=== PATIENT | male | born 1950 | race Caucasian/White ===

== ENCOUNTER 2016-10-06 11:14 | Emergency (ER) | payer MEDICARE ==
--- NOTE | 2016-10-06 11:38 | ER Document Report ---
ED General - General Stated Complaint: CHEST PAIN Mode of Arrival: Ambulatory Information source: Patient, Outside Facility Records Notes: 65-year-old male history of one DC one stent presents with complaints of chest pain. Patient notes the pain has been ongoing for past week, associated with worsening pressure overnight and shortness of breath for the past 2-3 days. He should now having left arm numbness states this feels similar to his previous DC - HPI Onset: Last week Onset/Duration: Intermittent Quality of pain: Pressure Severity: Mild Pain Level: 1 Associated symptoms: Chest pain, Shortness of breath Exacerbated by: Denies Relieved by: Denies Similar symptoms previously: Yes Recently seen / treated by doctor: Yes - Related Data Allergies/Adverse Reactions: No Known Allergies Allergy (Verified 10/06/16 11:36) Home Medications: Current Home Medications Alprazolam 2 mg PO BID 10/06/16 [History] Aspirin [Aspirin 325 mg Tablet] 1 tab PO DAILY 10/06/16 [History] Atorvastatin Calcium 40 mg PO DAILY 10/06/16 [History] Colesevelam HCl [Welchol 625 mg Tablet] 3 tab PO BID 10/06/16 [History] Metoprolol Succinate 50 mg PO DAILY 10/06/16 [History] Past Medical History - Social History Smoking Status: Current Every Day Smoker Cigarette use (# per day): Yes Chew tobacco use (# tins/day): No Smoking Education Provided: No Frequency of alcohol use: Occasional Family History: Reviewed & Not Pertinent Review of Systems - Review of Systems Notes: REVIEW OF SYSTEMS: CONSTITUTIONAL : Denies fever, chills, or sweats. Denies recent illness. EENT: Denies eye, ear, throat, or mouth pain or symptoms. Denies nasal or sinus congestion or discharge. Denies throat, tongue, or mouth swelling or difficulty swallowing. CARDIOVASCULAR: Admits chest pain RESPIRATORY: Admits shortness of breath GASTROINTESTINAL: Denies abdominal pain or distention. Denies nausea, vomiting , or diarrhea. Denies blood in vomitus, stools, or per rectum. Denies black, tarry stools. Denies constipation. GENITOURINARY: Denies difficulty urinating, painful urination, burning, frequency, blood in urine, or discharge. MUSCULOSKELETAL: Denies back or neck pain or stiffness. Denies joint pain or swelling. SKIN: Denies rash, lesions or sores. HEMATOLOGIC : Denies easy bruising or bleeding. LYMPHATIC: Denies swollen, enlarged glands. NEUROLOGICAL: Denies confusion or altered mental status. Denies passing out or loss of consciousness. Denies dizziness or lightheadedness. Denies headache. Denies weakness or paralysis or loss of use of either side. Denies problems with gait or speech. Denies sensory loss, numbness, or tingling. Denies seizures. PSYCHIATRIC: Denies anxiety or stress. Denies depression, suicidal ideation, or homicidal ideation. ALL OTHER SYSTEMS REVIEWED AND NEGATIVE. Dictation was performed using [employer] voice recognition software PHYSICAL EXAMINATION: GENERAL: Well-appearing, well-nourished and in no acute distress. HEAD: Atraumatic, normocephalic. EYES: Pupils equal round and reactive to light, extraocular movements intact, sclera anicteric, conjunctiva are normal. ENT: Nares patent, oropharynx clear without exudates. Moist mucous membranes. NECK: Normal range of motion, supple without lymphadenopathy LUNGS: Breath sounds clear to auscultation bilaterally and equal. No wheezes rales or rhonchi. HEART: Regular rate and rhythm without murmurs ABDOMEN: Soft, nontender, nondistended abdomen. No guarding, no rebound. No masses appreciated. Musculoskeletal: Normal range of motion, no pitting or edema. No cyanosis. NEUROLOGICAL: Cranial nerves grossly intact. Normal speech, normal gait. Normal sensory, motor exams PSYCH: Normal mood, normal affect. SKIN: Warm, Dry, normal turgor, no rashes or lesions noted. Physical Exam - Vital signs Vitals: Temp Pulse Resp BP Pulse Ox 98.7 F 69 18 99/61 L 95 10/06/16 11:25 10/06/16 11:25 10/06/16 11:25 10/06/16 11:25 10/06/16 11:25 Course - Re-evaluation Re-evalutation: 10/06/16 11:46 I immediately contacted Lindsey Horner regarding possible STEMI, their physician answering the phone does not believe it is a STEMI, I did fax over a copy of the EKG Laboratories pending at this time 10/06/16 12:17 Dr. Luevano evaluated the EKG there was faxed to her, she showed her to the materials planning manager who agrees that there are ischemic changes without an DC at this time. They requested nitro drip heparin drip aspirin. Patient has already taken a full dose aspirin and has Nitropaste on, this has been removed. Patient will be transferred to their facility ED SHOBHA - Vital Signs Vital signs: Temp Pulse Resp BP Pulse Ox 98.7 F 69 15 113/81 100 10/06/16 11:25 10/06/16 11:25 10/06/16 12:00 10/06/16 11:56 10/06/16 12:00 - Laboratory Result Diagrams: 10/06/16 11:35 10/06/16 11:35 Laboratory results interpreted by me: 10/06/16 10/06/16 11:35 11:35 RBC 4.25 L MCV 100 H MCH 34.2 H Plt Count 112 L Glucose 154 H - EKG Interpretation by Me EKG shows normal: Sinus rhythm, [place], Intervals When compared to previous EKG there are: Previous EKG unavailable - Significant depressions noted in leads 1 aVL V3 V4 V5 V6 mild elevation noted in lead 3 - Consults new aureliano stemi line Time consulted: 11:30 Reason for consultation: 10/06/16 11:34 possible DC, requesting ekg NSTEMI 2000, stent right proximal Jun [address] elevation III, no depressions Critical Care Note - Critical Care Note Total time excluding time spent on procedures (mins): 45 Comments: 45 minutes of critical care time spent in direct contact evaluating and reevaluating the patient, treating symptoms, reviewing labs and studies and speaking with family and consultants excluding any procedures Discharge - Discharge Clinical Impression: Acute electrocardiogram changes, Unstable angina, NSTEMI (non-ST elevated myocardial infarction) Chest pain Qualifiers: Chest pain type: unspecified Qualified Code(s): R07.9 - Chest pain, unspecified Condition: Stable Disposition: [facility]
[2016-10-06] MEDS ORDERED: ASPIRIN 81 MG TABLET, CHEWABLE PO ONE (11:42)
[2016-10-06] MEDS ORDERED: NITROGLYCERIN 5 MG (0.2 MG/HR) PATCH.TD24 TD ONE (11:44)
[2016-10-06 11:52] LABS: ABSOLUTE BASOPHILS # (AUTO) 0.1 10^3/uL (0.0-0.2); ABSOLUTE EOSINOPHILS # (AUTO) 0.1 10^3/uL (0.0-0.6); ABSOLUTE LYMPHOCYTES (AUTO) 1.4 10^3/uL (0.5-4.7); ABSOLUTE MONOCYTES (AUTO) 0.6 10^3/uL (0.1-1.4); ABSOLUTE NEUT (AUTO) 6.6 10^3/uL (1.7-8.2); HEMATOCRIT 42.4 % (37.9-51.0); HEMOGLOBIN 14.5 g/dL (13.5-17.0); HGB HCT DIFFERENCE 1.1; MEAN CORPUSCULAR HEMOGLOBIN 34.2 pg (27.0-33.4); MEAN CORPUSCULAR HGB CONC 34.2 g/dL (32.0-36.0); MEAN CORPUSCULAR VOLUME 100 fl (80-97); MONOCYTES % (AUTO) 6.4 % (3-13); PROTHROMBIN TIME 13.3 SEC (11.4-15.4); RED BLOOD COUNT 4.25 10^6/uL (4.35-5.55); RED CELL DISTRIBUTION WIDTH 13.1 % (11.5-14.0); SEGMENTED NEUTROPHILS % (AUTO) 75.6 % (42-78); WHITE BLOOD COUNT 8.7 10^3/uL (4.0-10.5)
[2016-10-06 12:04] LABS: ALANINE AMINOTRANSFERASE 50 U/L (21-72); ALBUMIN 4.1 g/dL (3.5-5.0); ALKALINE PHOSPHATASE 67 U/L (38-126); ANION GAP 14 (5-19); ASPARTATE AMINO TRANSFERASE 24 U/L (17-59); BILIRUBIN,TOTAL 0.7 mg/dL (0.2-1.3); BLOOD UREA NITROGEN 9 mg/dL (7-20); CALCIUM 9.4 mg/dL (8.4-10.2); CARBON DIOXIDE 24 mmol/L (22-30); CHLORIDE 106 mmol/L (98-107); CREATINE KINASE 170 U/L (55-170); CREATININE RESULT 0.84 mg/dL (0.52-1.25); GLUCOSE 154 mg/dL (75-110); SODIUM 143.9 mmol/L (137-145); TOTAL PROTEIN 7.2 g/dL (6.3-8.2)
[2016-10-06] MEDS ORDERED: HEPARIN SODIUM,PORCINE/D5W 250 ML IV PRN (12:07)
[2016-10-06] MEDS ORDERED: HEPARIN SOD (PORCINE) 1,000 UNIT/ML 10 ML VIAL IV ONE (12:07)
[2016-10-06] MEDS ORDERED: NITROGLYCERIN/D5W 250 ML IV PRN (12:07)
[2016-10-06] MEDS ORDERED: HEPARIN SOD (PORCINE) 1,000 UNIT/ML 10 ML VIAL IV PRN (12:07)
[2016-10-06 12:15] LABS: CREATINE KINASE MB 5.19 ng/mL (<4.55)
[2016-10-06 12:19] LABS: TROPONIN I 1.78 ng/mL
[2016-10-06 13:29] VITALS: BP 104/72
--- NOTE | 2016-10-06 19:51 | EKG REPORT ---
SEVERITY:- ABNORMAL ECG - SINUS RHYTHM REPOL ABNRM SUGGESTS ISCHEMIA, DIFFUSE LEADS : Confirmed by: Raj Carter MD 06-Oct-2016 19:51:13
--- NOTE | 2016-10-06 19:53 | EKG REPORT ---
SEVERITY:- ABNORMAL ECG - SINUS RHYTHM REPOL ABNRM SUGGESTS ISCHEMIA, DIFFUSE LEADS CLINICAL CORRELATIO N NEEDED. SERIAL EKGS NEEDED. : Confirmed by: Raj Carter MD 06-Oct-2016 19:52:43
== END 2016-10-06 13:05 | disposition short-term general hospital (02) ==
LOC: ER 11:14
DX: I20.0 Unstable angina (principal); I21.4 Non-ST elevation (NSTEMI) myocardial infarction; R07.9 Chest pain, unspecified; R06.02 Shortness of breath; Z79.899 Other long term (current) drug therapy; F17.210 Nicotine dependence, cigarettes, uncomplicated
CPT/HCPCS: 93005; 99291; 96375; 96365; 36415; 82553; 82550; 85025; 85610; 85730; 80053; 84484; 71010; 93010; J1644 ×2; J3490 ×2

== ENCOUNTER 2019-06-02 00:26 | Inpatient (IN) | payer MEDICARE, OTHER ==
[2019-06-02] MEDS ORDERED: NITROGLYCERIN/D5W 50 MG/250 ML RTUINJ IV ONE (00:28)
[2019-06-02] MEDS ORDERED: NITROGLYCERIN/D5W 50 MG/250 ML RTUINJ IV PRN (00:32)
--- NOTE | 2019-06-02 00:39 | ER Document Report ---
ED General - General Chief Complaint: Shortness Of Breath Stated Complaint: DIFFICULTY BREATHING Time Seen by Provider: 06/02/19 00:31 Primary Care Provider: JAZMIN SCOTT MD [Primary Care Provider] - Follow up as needed TRAVEL OUTSIDE OF THE [place] IN LAST 30 DAYS: No - HPI Notes: Patient is a 68-year-old male who presents to the emergency department for evaluation of shortness of breath. Is been going on for the last 3 days, progressively worse. He states he has had a cough, mucus, occasionally bloody. He denies any fevers. He is having no chest pain associated with this. He was placed on BiPAP because he was found to be hypoxic at the scene with an elevated respiratory rate. Taking his medications as prescribed. - Related Data Allergies/Adverse Reactions: No Known Allergies Allergy (Verified 10/06/16 11:36) Home Medications: Home medications reviewed, please see chart Past Medical History - General Information source: Patient - Social History Smoking Status: Current Every Day Smoker Chew tobacco use (# tins/day): No Frequency of alcohol use: Social Drug Abuse: None Family History: Reviewed & Not Pertinent Patient has suicidal ideation: No Patient has homicidal ideation: No - Past Medical History Cardiac Medical History: Reports: Hx Coronary Artery Disease, Hx Heart Attack, Hx Hypercholesterolemia, Hx Hypertension Renal/ Medical History: Denies: Hx Peritoneal Dialysis Past Surgical History: Reports: Hx Cardiac Catheterization - stent x1 Review of Systems - Review of Systems Constitutional: No symptoms reported EENT: No symptoms reported Cardiovascular: See HPI Respiratory: See HPI Gastrointestinal: No symptoms reported Genitourinary: No symptoms reported Musculoskeletal: No symptoms reported Skin: No symptoms reported Neurological/Psychological: No symptoms reported Physical Exam - Vital signs Vitals: Resp Pulse Ox 44 H 87 L 06/02/19 00:28 06/02/19 00:28 - Notes Notes: 68-year-old male appears stated age, moderate amount of distress. He is on BiPAP, respiratory rate between 38 and 40. Head is normocephalic and atraumatic, pupils are equal round, reactive to light. Oral mucosa is moist. Heart is tachycardic with normal S1-S2. Lungs show rales throughout lung posada bilaterally. Abdomen is obese, nontender, normoactive bowel sounds. Extremities show +1 pitting edema bilaterally without posterior calf tenderness. Patient is awake and alert, neurological exam is nonfocal. Course - Re-evaluation Re-evalutation: 06/02/19 00:38 Presents emergency department for evaluation via EMS. He was found to be hypoxic on arrival. He arrived on CPAP, this was changed over to BiPAP. He is markedly hypertensive. Given his rales and hypertension, as well as reports of some process, I do strongly suspect acute congestive heart failure in this patient. He was placed on a nitroglycerin drip, BiPAP continued. Laboratory investigations and EKG obtained, we will continue to monitor. 06/02/19 01:56 Patient responded well to nitroglycerin and BiPAP. He is feeling significantly improved. Chest x-ray read by radiology showing left upper lobe infiltrate. He is given IV Levaquin. Blood cultures had already been obtained. Despite the fact that this patient meets sepsis criteria, I do not think it appropriate to give IV fluids. I do suspect that he had some flash pulmonary edema. He has a pro-that is elevated with no history of congestive heart failure. Given this combination of events, will perform a CT angiogram of the chest to rule out pulmonary embolus. Patient has improved remarkably. We will continue to monitor. 06/02/19 03:41 Angiogram of the chest failed to reveal any pulmonary embolus. Patient's read showed further bilateral upper lobe pneumonia. At this point, clinically I am unsure as to whether or not this is in fact pneumonia. I do not feel inclined to give IV fluids in this patient who appeared to be clinically in heart fa ilure/pulmonary edema on arrival. He is given IV Levaquin to cover for pneumonia. He is weaned off BiPAP successfully, is now requiring nasal cannula oxygen for appropriate SPO2. I spoke with Dr. Zhong, he will be the patient for further care. - Vital Signs Vital signs: Temp Pulse Resp BP Pulse Ox 22 H 124/79 95 06/02/19 03:36 06/02/19 03:36 06/02/19 03:36 - Laboratory Result Diagrams: 06/02/19 00:30 06/02/19 00:30 Laboratory results interpreted by me: 06/02/19 06/02/19 06/02/19 00:30 00:30 00:30 WBC 14.8 H MCV 100 H MCH 33.6 H Plt Count 100 L Absolute Neuts (auto) 10.9 H Chloride 108 H Glucose 183 H NT-Pro-B Natriuret Pep 3000 H Total Protein 8.3 H Urine Protein Ur Leukocyte Esterase Urine Ascorbic Acid 06/02/19 01:30 WBC MCV MCH Plt Count Absolute Neuts (auto) Chloride Glucose NT-Pro-B Natriuret Pep Total Protein Urine Protein >=500 H Ur Leukocyte Esterase TRACE H Urine Ascorbic Acid 40 H - Diagnostic Test Radiology reviewed: Image reviewed, Reports reviewed Radiology results interpreted by me: 06/02/19 01:57 Chest X-Ray 06/02/19 00:00 IMPRESSION: Left upper lobe pneumonia. - EKG Interpretation by Me Additional EKG results interpreted by me: 06/02/19 00:44 Sinus tachycardia with a rate of 116 bpm. Right axis deviation. ST depression anterolateral leads. This is actually improved in regards to ischemic changes from prior study performed October 06, 2016 Critical Care Note - Critical Care Note Total time excluding time spent on procedures (mins): 40 Discharge - Discharge Clinical Impression: Acute respiratory failure with hypoxia Pneumonia Qualifiers: Pneumonia type: due to unspecified organism Laterality: bilateral Congestive heart failure Qualifiers: Heart failure type: unspecified Heart failure chronicity: acute Qualified Code(s): I50.9 - Heart failure, unspecified Condition: Stable Disposition: ADMITTED INPATIENT Admitting Provider: Trevin (Hospitalist) Unit Admitted: IMCU Referrals: JAZMIN SCOTT MD [Primary Care Provider] - Follow up as needed
[2019-06-02 00:50] LABS: ABSOLUTE BASOPHILS # (AUTO) 0.1 10^3/uL (0.0-0.2); ABSOLUTE EOSINOPHILS # (AUTO) 0.3 10^3/uL (0.0-0.6); ABSOLUTE LYMPHOCYTES (AUTO) 2.4 10^3/uL (0.5-4.7); ABSOLUTE MONOCYTES (AUTO) 1.1 10^3/uL (0.1-1.4); ABSOLUTE NEUT (AUTO) 10.9 10^3/uL (1.7-8.2); BASOPHILS % (AUTO) 0.8 % (0-2); HEMATOCRIT 47.3 % (37.9-51.0); HEMOGLOBIN 15.9 g/dL (13.5-17.0); LYMPHOCYTES % (AUTO) 16.1 % (13-45); MEAN CORPUSCULAR HEMOGLOBIN 33.6 pg (27.0-33.4); MEAN CORPUSCULAR HGB CONC 33.5 g/dL (32.0-36.0); MEAN CORPUSCULAR VOLUME 100 fl (80-97); MONOCYTES % (AUTO) 7.4 % (3-13); PLATELET COUNT 100 10^3/uL (150-450); RED BLOOD COUNT 4.72 10^6/uL (4.35-5.55); RED CELL DISTRIBUTION WIDTH 13.2 % (11.5-14.0); SEGMENTED NEUTROPHILS % (AUTO) 73.7 % (42-78); TOTAL CELLS COUNTED % (AUTO) 100 %; WHITE BLOOD COUNT 14.8 10^3/uL (4.0-10.5)
[2019-06-02 01:07] LABS: INTERNATIONAL RATION (INR) 1.02; PROTHROMBIN TIME 13.4 SEC (11.4-15.4)
[2019-06-02 01:08] LABS: PARTIAL THROMBOPLASTIN TIME 28.7 SEC (23.5-35.8)
[2019-06-02 01:13] LABS: ALBUMIN 4.6 g/dL (3.5-5.0); ALKALINE PHOSPHATASE 76 U/L (38-126); ANION GAP 14 (5-19); ASPARTATE AMINO TRANSFERASE 20 U/L (17-59); BILIRUBIN,DIRECT 0.4 mg/dL (0.0-0.4); BILIRUBIN,TOTAL 1.2 mg/dL (0.2-1.3); BLOOD UREA NITROGEN 14 mg/dL (7-20); CALCIUM 9.8 mg/dL (8.4-10.2); CARBON DIOXIDE 22 mmol/L (22-30); CHLORIDE 108 mmol/L (98-107); CREATINE KINASE 116 U/L (55-170); GLUCOSE 183 mg/dL (75-110); POTASSIUM 4.4 mmol/L (3.6-5.0); TOTAL PROTEIN 8.3 g/dL (6.3-8.2)
--- NOTE | 2019-06-02 01:21 | RADIOLOGY REPORT (SQ) ---
CLINICAL HISTORY: DIFF BREATHING, SOB COMPARISON: None. TECHNIQUE: XR CHEST 1 VIEW 06/02/2019 12:00 AM CDT FINDINGS: The heart is enlarged. Sternotomy was performed. There is left upper lobe airspace disease. There is no pleural effusion. There is no pneumothorax. There are no acute osseous findings. IMPRESSION: Left upper lobe pneumonia.
[2019-06-02 01:25] LABS: NT PRO BNP 3000 pg/mL (<125)
[2019-06-02 01:29] LABS: TROPONIN I < 0.012 ng/mL
[2019-06-02] MEDS ORDERED: LEVOFLOXACIN 750 MG/D5W RTU 750 MG/150 ML RTUPB IV ONE (01:32)
[2019-06-02 02:35] LABS: APPEARANCE,URINE CLEAR; BILIRUBIN,URINE NEGATIVE (NEGATIVE); COLOR,URINE YELLOW; GLUCOSE, URINE NEGATIVE (NEGATIVE); KETONES,URINE NEGATIVE (NEGATIVE); LEUKOCYTE ESTERASE,URINE TRACE (NEGATIVE); NITRITE,URINE NEGATIVE (NEGATIVE); PROTEIN,URINE >=500 mg/dL (NEGATIVE); UROBILINOGEN,URINE NEGATIVE mg/dL (<2.0)
[2019-06-02 02:43] LABS: URINE SPECIFIC GRAVITY 1.027
--- NOTE | 2019-06-02 03:03 | RADIOLOGY REPORT (SQ) ---
CLINICAL HISTORY: dyspnea, hemoptysis, CREAT 0.81 COMPARISON: None. TECHNIQUE: CT CHEST ANGIOGRAPHY WITHOUT THEN WITH IV CONTRAST on 06/02/2019 1:58 AM CDT. MIPS reconstructions were generated. This exam was performed according to our departmental dose-optimization program, which includes automated exposure control, adjustment of the mA and/or kV according to patient size and/or use of iterative reconstruction technique. MIP images were generated. FINDINGS: Thoracic aorta is normal in course and caliber without aneurysm or dissection. Pulmonary arteries are adequately opacified without acute or chronic filling defects. The heart is moderately enlarged. Sternotomy was performed. There is no pericardial effusion. Intrathoracic lymph nodes are not enlarged. There are trace pleural effusions. Central airways are patent. There is bibasilar atelectasis. There are patchy bilateral upper lobe opacities. There is mild intralobular septal thickening. There are no acute abnormalities within the limited images of the upper abdomen. There are no acute osseous findings. No suspicious bony lesions. IMPRESSION: Bilateral upper lobe pneumonia with pleural effusions. Cardiomegaly with no aortic dissection or aneurysm. No pulmonary embolus.
[2019-06-02] MEDS ORDERED: ACETAMINOPHEN 325 MG TABLET PO PRN (03:42)
[2019-06-02] MEDS ORDERED: IPRATROPIUM/ALBUTEROL 0.5-2.5 MG/3 ML AMPUL NEB PRN (03:42)
[2019-06-02] MEDS ORDERED: DEXTROSE 50%-WATER 25 GM/50 ML DISP.SYRIN IV PRN ×2 (03:47)
[2019-06-02] MEDS ORDERED: DEXTROSE 40% GEL 15 GM TUBE PO PRN ×2 (03:47)
[2019-06-02] MEDS ORDERED: GLUCAGON,HUMAN RECOMB 1 MG INJ IM PRN (03:47)
[2019-06-02 03:57] LABS: ABSOLUTE RETICS # 0.063 10^6/uL (0.028-0.122); RETICULOCYTE COUNT (AUTO) 1.34 % (0.66-2.85)
--- NOTE | 2019-06-02 06:37 | PDOC H&P ---
History of Present Illness Admission Date/PCP: 06/02/19 03:59 JAZMIN SCOTT MD Patient complains of: Shortness of breath History of Present Illness: ADRIANA GALLEGO is a 68 year old male with a past medical history of tobacco, coronary artery disease status post coronary artery bypass graft 2016, hypertension and anxiety. He presents with 48 hours of intermittently productive cough increasing shortness of breath and over the last 12 hours blood-tinged sputum prompting evaluation emergency room where he is found to have bilateral pneumonia, and hypertensive urgency. He is started on empiric antibiotics, supplemental oxygen and referred to the hospitalist for admission. Past Medical History Cardiac Medical History: Reports: Coronary Artery Disease, Myocardial Infarction, Hyperlipidema, Hypertension Pulmonary Medical History: Reports: Bronchitis Endocrine Medical History: Reports: Diabetes Mellitus Type 2 Psychiatric Medical History: Reports: Tobacco Dependency Past Surgical History Past Surgical History: Reports: Cardiac Catheterization - stent x1 Social History Information Source: Patient, [facility] Records Lives with: Family Smoking Status: Current Every Day Smoker Electronic Cigarette use?: No - Advance Directive Resuscitation Status: Full Code Family History Family History: Hypertension Parental Family History Reviewed: Yes Children Family History Reviewed: Yes Sibling(s) Family History Reviewed.: Yes Medication/Allergy Home Medications: Aspirin [Aspirin 325 mg Tablet] 1 tab PO DAILY 10/06/16 Atorvastatin Calcium 40 mg PO QHS 10/06/16 Alprazolam 1 mg PO DAILYP PRN 06/02/19 Bupropion HCl [Bupropion Xl] 150 mg PO BID 06/02/19 Chlorpromazine HCl [Thorazine 25 Mg Tablet] 1 - 2 tab PO DAILYP PRN 06/02/19 Colesevelam HCl [Welchol 625 mg Tablet] 3 tab PO BID 06/02/19 Ibuprofen [Ibu] 800 mg PO TIDP PRN 06/02/19 Lancets 06/02/19 Metformin HCl [Metformin HCl ER] 500 mg PO DAILY 06/02/19 Metoprolol Tartrate [Lopressor 25 mg Tablet] 25 mg PO Q12 06/02/19 Mirtazapine 30 mg PO QHS 06/02/19 Nitroglycerin [Nitrostat 0.4 mg (1/150 Gr) Tabs 25/Bottle] 1 tab SL Q5MP PRN 1 Triamcinolone Acetonide 60 ml TP BID 10/29/19 Allergies/Adverse Reactions: No Known Allergies Allergy (Verified 10/06/16 11:36) Review of Systems Constitutional: ABSENT: chills, fever(s), headache(s), weight gain, weight loss Eyes: ABSENT: visual disturbances Ears: ABSENT: hearing changes Cardiovascular: ABSENT: chest pain, dyspnea on exertion, edema, orthropnea, palpitations Respiratory: ABSENT: cough, hemoptysis Gastrointestinal: ABSENT: abdominal pain, constipation, diarrhea, hematemesis, hematochezia, nausea, vomiting Genitourinary: ABSENT: dysuria, hematuria Musculoskeletal: ABSENT: joint swelling Integumentary: ABSENT: rash, wounds Neurological: ABSENT: abnormal gait, abnormal speech, confusion, dizziness, focal weakness, syncope Psychiatric: ABSENT: anxiety, depression, homidical ideation, suicidal ideation Endocrine: ABSENT: cold intolerance, heat intolerance, polydipsia, polyuria Hematologic/Lymphatic: ABSENT: easy bleeding, easy bruising Physical Exam Vital Signs: Temp Pulse Resp BP Pulse Ox 98.2 F 29 H 114/76 94 06/02/19 03:57 06/02/19 05:16 06/02/19 05:16 06/02/19 05:16 Intake & Output 05/31/19 06/01/19 06/02/19 11:59 11:59 11:59 Intake Total 181 Balance 181 Weight 108 kg General appearance: PRESENT: cooperative, mild distress, well-developed, well- nourished Head exam: PRESENT: atraumatic, normocephalic Eye exam: PRESENT: conjunctiva pink, EOMI, PERRLA. ABSENT: scleral icterus Ear exam: PRESENT: normal external ear exam Mouth exam: PRESENT: moist, tongue midline Neck exam: ABSENT: carotid bruit, JVD, lymphadenopathy, thyromegaly Respiratory exam: PRESENT: accessory muscle use, crackles, rales, rhonchi, symmetrical, tachypnea. ABSENT: clear to auscultation charbel Cardiovascular exam: PRESENT: RRR, tachycardia. ABSENT: diastolic murmur, rubs, systolic murmur Pulses: PRESENT: normal dorsalis pedis pul Vascular exam: PRESENT: normal capillary refill GI/Abdominal exam: PRESENT: normal bowel sounds, soft. ABSENT: distended, guarding, mass, organolmegaly, rebound, tenderness Rectal exam: PRESENT: deferred Extremities exam: PRESENT: full ROM. ABSENT: calf tenderness, clubbing, pedal edema Neurological exam: PRESENT: alert, awake, oriented to person, oriented to place, oriented to time, oriented to situation, CN II-XII grossly intact. ABSENT: motor sensory deficit Psychiatric exam: PRESENT: appropriate affect, normal mood. ABSENT: homicidal ideation, suicidal ideation Skin exam: PRESENT: dry, intact, warm. ABSENT: cyanosis, rash Results Laboratory Results: 06/02/19 00:30 06/02/19 00:30 06/02/19 06/02/19 06/02/19 00:30 00:30 00:30 WBC 14.8 H RBC 4.72 Hgb 15.9 Hct 47.3 MCV 100 H MCH 33.6 H MCHC 33.5 RDW 13.2 Plt Count 100 L Seg Neutrophils % 73.7 Retic Count (auto) 1.34 Sodium 144.3 Potassium 4.4 Chloride 108 H Carbon Dioxide 22 Anion Gap 14 BUN 14 Creatinine 0.81 Est GFR ( Amer) > 60 Glucose 183 H Calcium 9.8 Total Bilirubin 1.2 AST 20 Alkaline Phosphatase 76 Total Protein 8.3 H Albumin 4.6 Urine Color Urine Appearance Urine pH Ur Specific [place] Urine Protein Urine Glucose (UA) Urine Ketones Urine Blood Urine Nitrite Ur Leukocyte Esterase Urine WBC (Auto) Urine RBC (Auto) 06/02/19 01:30 WBC RBC Hgb Hct MCV MCH MCHC RDW Plt Count Seg Neutrophils % Retic Count (auto) Sodium Potassium Chloride Carbon Dioxide Anion Gap BUN Creatinine Est GFR ( Amer) Glucose Calcium Total Bilirubin AST Alkaline Phosphatase Total Protein Albumin Urine Color YELLOW Urine Appearance CLEAR Urine pH 6.0 Ur Specific [place] 1.027 Urine Protein >=500 H Urine Glucose (UA) NEGATIVE Urine Ketones NEGATIVE Urine Blood NEGATIVE Urine Nitrite NEGATIVE Ur Leukocyte Esterase TRACE H Urine WBC (Auto) 10 Urine RBC (Auto) 3 06/02/19 06/02/19 00:30 00:30 Creatine Kinase 116 CK-MB (CK-2) 1.50 Troponin I < 0.012 NT-Pro-B Natriuret Pep 3000 H Impressions: Chest X-Ray 06/02/19 00:00 IMPRESSION: Left upper lobe pneumonia. Chest/Abdomen CTA 06/02/19 01:58 IMPRESSION: Bilateral upper lobe pneumonia with pleural effusions. Cardiomegaly with no aortic dissection or aneurysm. No pulmonary embolus. Assessment and Plan - Diagnosis (1) Pneumonia Qualifiers: Pneumonia type: due to unspecified organism Laterality: bilateral Is this a current diagnosis for this admission?: Yes Plan: Pneumonia care set deployed, follow-up CBC and blood culture (2) Hypertensive urgency Is this a current diagnosis for this admission?: Yes Plan: Results with improved respiratory status, supplemental oxygen, (3) Acute respiratory failure with hypoxia Is this a current diagnosis for this admission?: Yes Plan: Multifactorial secondary to #1 and early diastolic heart failure, optimize volume, blood pressure and heart rate, follow-up chemistry (4) Congestive heart failure Qualifiers: Heart failure type: unspecified Heart failure chronicity: acute Qualified Code(s): I50.9 - Heart failure, unspecified Is this a current diagnosis for this admission?: Yes Plan: Secondary to hypertensive urgency. Optimize volume and pressure, diuresis PRN - Time Time Spent with patient: 25-34 minutes - Inpatient Certification Medical Necessity: Need Close Monitoring Due to Risk of Patient Decompensation
[2019-06-02] MEDS: FLUTICASONE NASAL SPRAY 50 MCG/SPRY 120 SPRAY/16 GM NASL SCH ×2 (07:34→17:03)
[2019-06-02] MEDS: HEPARIN SOD (PORCINE) 5,000 UNIT/ML 1 ML VIAL SUBCUT SCH ×3 (07:34→21:39)
--- NOTE | 2019-06-02 07:39 | EKG REPORT ---
SEVERITY:- BORDERLINE ECG - SINUS TACHYCARDIA PROBABLE LEFT ATRIAL ABNORMALITY RIGHT AXIS DEVIATION MINIMAL ST DEPRESSION, LATERAL LEADS : Confirmed by: Raj Carter MD 02-Jun-2019 07:38:42
[2019-06-02] MEDS: INSULIN LISPRO 100 UNIT/ML 3 ML VIAL SUBCUT SCH ×3 (08:09→17:01)
[2019-06-02] MEDS: NICOTINE 7 MG/24 HR PATCH.TD24 TD SCH (08:12)
[2019-06-02] MEDS: IPRATROPIUM/ALBUTEROL 0.5-2.5 MG/3 ML AMPUL NEB SCH ×2 (08:34→16:17)
[2019-06-02] MEDS: CEFTRIAXONE 1 GM/D5W RTU 1 GM/50 ML RTUPB IV SCH (09:56)
[2019-06-02] MEDS ORDERED: AZITHROMYCIN 500 MG in DEXTROSE 5%-WATER 250 ML IV SCH (10:00)
[2019-06-02 10:01] LABS: IRON(TIBC) 93.4 ug/dL (49-181)
[2019-06-02] MEDS ORDERED: (PENDING PHARMACY ID) (Alprazolam [Alprazolam] 1 MG) PO PRN (10:23)
--- NOTE | 2019-06-02 10:24 | PDOC PROGRESS REPORT ---
Subjective Progress Note for:: 06/02/19 Reason For Visit: CHF, DM, HTN URGENCY, PNUEMONIA 06/02/2019 Was admitted after midnight so was seen just briefly this morning for the above problems. States he is feeling better this morning, less shortness of breath Physical Exam Vital Signs: Temp Pulse Resp BP Pulse Ox 98.1 F 77 18 120/67 97 06/02/19 08:30 06/02/19 08:34 06/02/19 08:34 06/02/19 08:30 06/02/19 08:34 Intake & Output 06/01/19 06/02/19 06/03/19 06:59 06:59 06:59 Intake Total 381 Output Total 200 Balance 181 Weight 97.9 kg General appearance: PRESENT: no acute distress, other - BiPAP in place teens inspiratory 16, rate of 8, expiratory 8, O2 sat 100% Respiratory exam: PRESENT: clear to auscultation charbel. ABSENT: rales, rhonchi, wheezes Cardiovascular exam: PRESENT: RRR. ABSENT: diastolic murmur, rubs, systolic murmur Neurological exam: PRESENT: alert, awake, oriented to person, oriented to place, oriented to time, oriented to situation, CN II-XII grossly intact. ABSENT: motor sensory deficit Psychiatric exam: PRESENT: appropriate affect, normal mood. ABSENT: homicidal ideation, suicidal ideation Results Laboratory Results: 06/02/19 00:30 06/02/19 00:30 06/02/19 06/02/19 06/02/19 00:30 00:30 00:30 WBC 14.8 H RBC 4.72 Hgb 15.9 Hct 47.3 MCV 100 H MCH 33.6 H MCHC 33.5 RDW 13.2 Plt Count 100 L Seg Neutrophils % 73.7 Retic Count (auto) 1.34 Sodium 144.3 Potassium 4.4 Chloride 108 H Carbon Dioxide 22 Anion Gap 14 BUN 14 Creatinine 0.81 Est GFR ( Amer) > 60 Glucose 183 H Calcium 9.8 Iron TIBC % Saturation Ferritin Total Bilirubin 1.2 AST 20 Alkaline Phosphatase 76 Total Protein 8.3 H Albumin 4.6 Vitamin B12 Folate Urine Color Urine Appearance Urine pH Ur Specific [place] Urine Protein Urine Glucose (UA) Urine Ketones Urine Blood Urine Nitrite Ur Leukocyte Esterase Urine WBC (Auto) Urine RBC (Auto) 06/02/19 06/02/19 00:30 01:30 WBC RBC Hgb Hct MCV MCH MCHC RDW Plt Count Seg Neutrophils % Retic Count (auto) Sodium Potassium Chloride Carbon Dioxide Anion Gap BUN Creatinine Est GFR ( Amer) Glucose Calcium Iron 93.4 TIBC 382 % Saturation 24 Ferritin 297.00 Total Bilirubin AST Alkaline Phosphatase Total Protein Albumin Vitamin B12 341.0 Folate 10.20 Urine Color YELLOW Urine Appearance CLEAR Urine pH 6.0 Ur Specific [place] 1.027 Urine Protein >=500 H Urine Glucose (UA) NEGATIVE Urine Ketones NEGATIVE Urine Blood NEGATIVE Urine Nitrite NEGATIVE Ur Leukocyte Esterase TRACE H Urine WBC (Auto) 10 Urine RBC (Auto) 3 06/02/19 06/02/19 00:30 00:30 Creatine Kinase 116 CK-MB (CK-2) 1.50 Troponin I < 0.012 NT-Pro-B Natriuret Pep 3000 H Impressions: Chest X-Ray 06/02/19 00:00 IMPRESSION: Left upper lobe pneumonia. Chest/Abdomen CTA 06/02/19 01:58 IMPRESSION: Bilateral upper lobe pneumonia with pleural effusions. Cardiomegaly with no aortic dissection or aneurysm. No pulmonary embolus. Assessment and Plan - Diagnosis (1) Acute respiratory failure with hypoxia Is this a current diagnosis for this admission?: Yes (2) Congestive heart failure Qualifiers: Heart failure type: unspecified Heart failure chronicity: acute Qualified Code(s): I50.9 - Heart failure, unspecified Is this a current diagnosis for this admission?: Yes (3) Hypertensive urgency Is this a current diagnosis for this admission?: Yes (4) Pneumonia Qualifiers: Pneumonia type: due to unspecified organism Laterality: bilateral Is this a current diagnosis for this admission?: Yes - Plan Summary Summary: 06/02/2019 Discussed with patient that usually this would take 3 to 5 days of IV antibiotics Patient is feeling better this morning since admission Out of signs are actually better blood pressure when he came in was 195/119 is now 122/59. ABCs when he came in was 14.8 BNP was 3000 CTA of the chest showed pneumonia bilaterally in both upper lobes Will reconcile home medications - Time Time Spent with patient: 25-34 minutes
[2019-06-02] MEDS ORDERED: (PENDING PHARMACY ID) (Metformin Hcl [Metformin Hcl Er] 500 MG) PO SCH (10:30)
[2019-06-02] MEDS: METOPROLOL TARTRATE 25 MG TABLET PO SCH ×2 (11:44→21:38)
[2019-06-02] MEDS: BUPROPION HCL 100 MG TABLET PO SCH ×2 (13:45→21:38)
[2019-06-02] MEDS: METFORMIN HCL 500 MG TABLET PO SCH (17:02)
[2019-06-02] MEDS: COLESEVELAM HCL 625 MG TABLET PO SCH (17:09)
[2019-06-02] MEDS ORDERED: TRIAMCINOLONE ACETONIDE TOP SCH (18:00)
[2019-06-02] MEDS: ALPRAZOLAM 0.5 MG TABLET PO PRN (21:38)
[2019-06-02] MEDS: MIRTAZAPINE 15 MG TABLET PO SCH (21:39)
[2019-06-02] MEDS: ATORVASTATIN CALCIUM 40 MG TABLET PO SCH (21:39)
[2019-06-02] MEDS ORDERED: (PENDING PHARMACY ID) (Mirtazapine [Mirtazapine] 30 MG) PO SCH (22:00)
[2019-06-02] MEDS ORDERED: (PENDING PHARMACY ID) (Bupropion Hcl [Bupropion Xl] 150 MG) PO SCH (22:00)
[2019-06-03] MEDS: IPRATROPIUM/ALBUTEROL 0.5-2.5 MG/3 ML AMPUL NEB SCH ×3 (00:26→15:38)
[2019-06-03] MEDS: BUPROPION HCL 100 MG TABLET PO SCH ×3 (06:00→21:58)
[2019-06-03] MEDS: FLUTICASONE NASAL SPRAY 50 MCG/SPRY 120 SPRAY/16 GM NASL SCH ×2 (06:00→17:39)
[2019-06-03] MEDS: HEPARIN SOD (PORCINE) 5,000 UNIT/ML 1 ML VIAL SUBCUT SCH ×3 (06:03→21:59)
[2019-06-03 06:24] LABS: ABSOLUTE LYMPHOCYTES (AUTO) 0.9 10^3/uL (0.5-4.7); ABSOLUTE MONOCYTES (AUTO) 0.8 10^3/uL (0.1-1.4); ABSOLUTE NEUT (AUTO) 6.5 10^3/uL (1.7-8.2); BASOPHILS % (AUTO) 0.3 % (0-2); EOSINOPHILS % (AUTO) 0.6 % (0-6); HEMOGLOBIN 13.9 g/dL (13.5-17.0); LYMPHOCYTES % (AUTO) 11.2 % (13-45); MEAN CORPUSCULAR HEMOGLOBIN 34.1 pg (27.0-33.4); MEAN CORPUSCULAR HGB CONC 34.6 g/dL (32.0-36.0); MEAN CORPUSCULAR VOLUME 99 fl (80-97); MONOCYTES % (AUTO) 10.1 % (3-13); RED BLOOD COUNT 4.06 10^6/uL (4.35-5.55); RED CELL DISTRIBUTION WIDTH 13.4 % (11.5-14.0); SEGMENTED NEUTROPHILS % (AUTO) 77.8 % (42-78); TOTAL CELLS COUNTED % (AUTO) 100 %; WHITE BLOOD COUNT 8.3 10^3/uL (4.0-10.5)
[2019-06-03 06:42] LABS: ANION GAP 12 (5-19); BLOOD UREA NITROGEN 12 mg/dL (7-20); CALCIUM 9.1 mg/dL (8.4-10.2); CARBON DIOXIDE 24 mmol/L (22-30); CHLORIDE 103 mmol/L (98-107); GLUCOSE 127 mg/dL (75-110); POTASSIUM 3.7 mmol/L (3.6-5.0)
[2019-06-03 07:22] LABS: PLATELET COUNT 69 10^3/uL (150-450)
[2019-06-03] MEDS: NICOTINE 7 MG/24 HR PATCH.TD24 TD SCH (08:29)
[2019-06-03] MEDS: INSULIN LISPRO 100 UNIT/ML 3 ML VIAL SUBCUT SCH ×3 (08:29→17:35)
[2019-06-03] MEDS: METFORMIN HCL 500 MG TABLET PO SCH ×2 (08:29→17:37)
[2019-06-03] MEDS: COLESEVELAM HCL 625 MG TABLET PO SCH ×2 (09:55→17:38)
[2019-06-03] MEDS: CEFTRIAXONE 1 GM/D5W RTU 1 GM/50 ML RTUPB IV SCH (09:55)
[2019-06-03] MEDS: ASPIRIN 325 MG TABLET PO SCH (09:55)
[2019-06-03] MEDS: METOPROLOL TARTRATE 25 MG TABLET PO SCH ×2 (09:55→21:58)
[2019-06-03] MEDS: AZITHROMYCIN 250 MG TABLET PO SCH (09:55)
--- NOTE | 2019-06-03 11:42 | PDOC PROGRESS REPORT ---
Subjective Progress Note for:: 06/03/19 Reason For Visit: CHF, DM, HTN URGENCY, PNUEMONIA 06/03/19 Patient was admitted to the hospital primarily for shortness of breath, hypoxia secondary to pneumonia, bilateral upper lobes. he does not use oxygen at home. Also hypertensive urgency Physical Exam Vital Signs: Temp Pulse Resp BP Pulse Ox 98.6 F 93 17 143/73 H 97 06/03/19 04:04 06/03/19 08:37 06/03/19 08:37 06/03/19 04:04 06/03/19 08:37 Intake & Output 06/02/19 06/03/19 06/04/19 06:59 06:59 06:59 Intake Total 381 1700 Output Total 200 2150 Balance 181 -450 Weight 97.9 kg 97.4 kg General appearance: PRESENT: mild distress, other - O2 sat drops down to 86% on room air when he is up and ambulatory Respiratory exam: PRESENT: rhonchi, other - Lower lobe area Cardiovascular exam: PRESENT: RRR. ABSENT: diastolic murmur, rubs, systolic murmur Neurological exam: PRESENT: alert, awake, oriented to person, oriented to place, oriented to time, oriented to situation, CN II-XII grossly intact. ABSENT: mo tor sensory deficit Psychiatric exam: PRESENT: appropriate affect, normal mood. ABSENT: homicidal ideation, suicidal ideation Results Laboratory Results: 06/03/19 05:30 06/03/19 05:30 06/03/19 06/03/19 05:30 05:30 WBC 8.3 RBC 4.06 L Hgb 13.9 Hct 40.0 MCV 99 H MCH 34.1 H MCHC 34.6 RDW 13.4 Plt Count 69 L Seg Neutrophils % 77.8 Sodium 138.7 Potassium 3.7 Chloride 103 Carbon Dioxide 24 Anion Gap 12 BUN 12 Creatinine 0.65 Est GFR ( Amer) > 60 Glucose 127 H Calcium 9.1 06/02/19 06/02/19 00:30 00:30 Creatine Kinase 116 CK-MB (CK-2) 1.50 Troponin I < 0.012 NT-Pro-B Natriuret Pep 3000 H Impressions: Chest X-Ray 06/02/19 00:00 IMPRESSION: Left upper lobe pneumonia. Chest/Abdomen CTA 06/02/19 01:58 IMPRESSION: Bilateral upper lobe pneumonia with pleural effusions. Cardiomegaly with no aortic dissection or aneurysm. No pulmonary embolus. Assessment and Plan - Diagnosis (1) Acute respiratory failure with hypoxia Is this a current diagnosis for this admission?: Yes (2) Congestive heart failure Qualifiers: Heart failure type: unspecified Heart failure chronicity: acute Qualified Code(s): I50.9 - Heart failure, unspecified Is this a current diagnosis for this admission?: Yes (3) Hypertensive urgency Is this a current diagnosis for this admission?: Yes (4) Pneumonia Qualifiers: Pneumonia type: due to unspecified organism Laterality: bilateral Is this a current diagnosis for this admission?: Yes - Plan Summary Summary: 06/02/2019 Discussed with patient that usually this would take 3 to 5 days of IV antibiotics Patient is feeling better this morning since admission, vital signs are actually better blood pressure when he came in was 195/119 is now 122/59. WBCs when he came in was 14.8 BNP was 3000 CTA of the chest showed pneumonia bilaterally in both upper lobes Will reconcile home medications 06/03/2019 She is actually comfortable when he is in bed and able to talk in full sentences. Afebrile temperature 98.6 pulse in the 80s or 90s. Blood pressure stable actually quite well controlled now Count is come down on admission 14.8 today is 8.3. Her lites are stable Continue pulmonary toiletry continue IV antibiotics. To 3 more days and then possibly discharge on p.o. antibiotics - Time Time Spent with patient: 15-24 minutes
[2019-06-03] MEDS: ALPRAZOLAM 0.5 MG TABLET PO PRN (21:58)
[2019-06-03] MEDS: MIRTAZAPINE 15 MG TABLET PO SCH (21:58)
[2019-06-03] MEDS: ATORVASTATIN CALCIUM 40 MG TABLET PO SCH (21:59)
[2019-06-04] MEDS: IPRATROPIUM/ALBUTEROL 0.5-2.5 MG/3 ML AMPUL NEB SCH ×3 (00:38→16:46)
[2019-06-04] MEDS: HEPARIN SOD (PORCINE) 5,000 UNIT/ML 1 ML VIAL SUBCUT SCH ×3 (05:31→22:33)
[2019-06-04] MEDS: FLUTICASONE NASAL SPRAY 50 MCG/SPRY 120 SPRAY/16 GM NASL SCH ×2 (05:32→18:39)
[2019-06-04] MEDS: BUPROPION HCL 100 MG TABLET PO SCH ×3 (05:34→22:37)
[2019-06-04] MEDS: INSULIN LISPRO 100 UNIT/ML 3 ML VIAL SUBCUT SCH ×3 (07:58→16:29)
[2019-06-04] MEDS: NICOTINE 7 MG/24 HR PATCH.TD24 TD SCH (08:52)
[2019-06-04] MEDS: METFORMIN HCL 500 MG TABLET PO SCH ×2 (08:53→16:28)
--- NOTE | 2019-06-04 09:18 | PDOC PROGRESS REPORT ---
Subjective Progress Note for:: 06/04/19 Reason For Visit: CHF, DM, HTN URGENCY, PNUEMONIA 06/04/2019 38-year-old male admitted on 06/02/2019 for shortness of breath. Gnosis pneumonia #2 hypertension urgency #3 hypoxia #4 CHF Physical Exam Vital Signs: Temp Pulse Resp BP Pulse Ox 98.3 F 104 H 16 147/83 H 96 06/04/19 07:29 06/04/19 08:22 06/04/19 08:22 06/04/19 07:29 06/04/19 08:22 Intake & Output 06/03/19 06/04/19 06/05/19 06:59 06:59 06:59 Intake Total 1700 1230 Output Total 2150 800 Balance -450 430 Weight 97.4 kg 95.8 kg General appearance: PRESENT: no acute distress, other - Sitting up in the chair eating breakfast, oxygen in place Respiratory exam: PRESENT: rhonchi - Slight rhonchi left lower lobe Cardiovascular exam: PRESENT: RRR. ABSENT: diastolic murmur, rubs, systolic murmur Neurological exam: PRESENT: alert, awake, oriented to person, oriented to place, oriented to time, oriented to situation, CN II-XII grossly intact. ABSENT: motor sensory deficit Psychiatric exam: PRESENT: appropriate affect, normal mood. ABSENT: homicidal ideation, suicidal ideation Results Laboratory Results: 06/03/19 05:30 06/03/19 05:30 06/02/19 06/02/19 00:30 00:30 Creatine Kinase 116 CK-MB (CK-2) 1.50 Troponin I < 0.012 NT-Pro-B Natriuret Pep 3000 H Impressions: Chest X-Ray 06/02/19 00:00 IMPRESSION: Left upper lobe pneumonia. Chest/Abdomen CTA 06/02/19 01:58 IMPRESSION: Bilateral upper lobe pneumonia with pleural effusions. Cardiomegaly with no aortic dissection or aneurysm. No pulmonary embolus. Assessment and Plan - Diagnosis (1) Acute respiratory failure with hypoxia Is this a current diagnosis for this admission?: Yes (2) Congestive heart failure Qualifiers: Heart failure type: unspecified Heart failure chronicity: acute Qualified Code(s): I50.9 - Heart failure, unspecified Is this a current diagnosis for this admission?: Yes (3) Hypertensive urgency Is this a current diagnosis for this admission?: Yes (4) Pneumonia Qualifiers: Pneumonia type: due to unspecified organism Laterality: bilateral Is this a current diagnosis for this admission?: Yes - Plan Summary Summary: 06/02/2019 Discussed with patient that usually this would take 3 to 5 days of IV antibiotics Patient is feeling better this morning since admission, vital signs are actually better blood pressure when he came in was 195/119 is now 122/59. WBCs when he came in was 14.8 BNP was 3000 CTA of the chest showed pneumonia bilaterally in both upper lobes Will reconcile home medications 06/03/2019 She is actually comfortable when he is in bed and able to talk in full sentences. Afebrile temperature 98.6 pulse in the 80s or 90s. Blood pressure stable actually quite well controlled now WBCount is come down on admission 14.8 today is 8.3. His lytes are stable Continue pulmonary toiletry continue IV antibiotics. To 3 more days and then possibly discharge on p.o. antibiotics 06/04/2019 Patient looks medically stable we will get another chest x-ray today Day 3 of IV Rocephin and Zithromax Potentially discharged home in 48 hours, continue antibiotics p.o. We will ask discharge planning to set up home oxygen - Time Time Spent with patient: 25-34 minutes
--- NOTE | 2019-06-04 11:26 | RADIOLOGY REPORT (SQ) ---
EXAM DESCRIPTION: CHEST 2 VIEWS COMPLETED DATE/TIME: 06/04/2019 11:08 am REASON FOR STUDY: Follow-up for pneumonia COMPARISON: 06/02/2019 NUMBER OF VIEWS: Two view TECHNIQUE: Frontal and lateral radiographic images of the chest acquired. LIMITATIONS: None. FINDINGS: LUNGS AND PLEURA: Bilateral upper lobe airspace disease with improved aeration in the left lung. MEDIASTINUM AND HILAR STRUCTURES: Stable heart size and mediastinal structures. HEART AND VASCULAR STRUCTURES: Stable appearance. BONES: No acute findings. HARDWARE: CABG. OTHER: No other significant finding. IMPRESSION: Improving pneumonia. TECHNICAL DOCUMENTATION: JOB ID: [id number] [employer]- All Rights Reserved Reading location - IP/workstation name: [email or web address]
[2019-06-04] MEDS: ASPIRIN 325 MG TABLET PO SCH (11:39)
[2019-06-04] MEDS: METOPROLOL TARTRATE 25 MG TABLET PO SCH ×2 (11:40→22:38)
[2019-06-04] MEDS: AZITHROMYCIN 250 MG TABLET PO SCH (11:40)
[2019-06-04] MEDS: CEFTRIAXONE 1 GM/D5W RTU 1 GM/50 ML RTUPB IV SCH (11:40)
[2019-06-04] MEDS: COLESEVELAM HCL 625 MG TABLET PO SCH ×2 (11:41→18:38)
[2019-06-04] MEDS: ATORVASTATIN CALCIUM 40 MG TABLET PO SCH (22:37)
[2019-06-04] MEDS: ALPRAZOLAM 0.5 MG TABLET PO PRN (22:37)
[2019-06-04] MEDS: MIRTAZAPINE 15 MG TABLET PO SCH (22:37)
[2019-06-05] MEDS: IPRATROPIUM/ALBUTEROL 0.5-2.5 MG/3 ML AMPUL NEB SCH ×4 (00:22→23:50)
[2019-06-05] MEDS: HEPARIN SOD (PORCINE) 5,000 UNIT/ML 1 ML VIAL SUBCUT SCH ×3 (05:07→22:28)
[2019-06-05] MEDS: FLUTICASONE NASAL SPRAY 50 MCG/SPRY 120 SPRAY/16 GM NASL SCH ×2 (05:08→17:26)
[2019-06-05] MEDS: BUPROPION HCL 100 MG TABLET PO SCH ×3 (06:20→22:27)
[2019-06-05] MEDS: INSULIN LISPRO 100 UNIT/ML 3 ML VIAL SUBCUT SCH ×4 (08:41→22:28)
[2019-06-05] MEDS: METFORMIN HCL 500 MG TABLET PO SCH ×2 (08:43→16:45)
[2019-06-05] MEDS: NICOTINE 7 MG/24 HR PATCH.TD24 TD SCH (08:45)
--- NOTE | 2019-06-05 10:57 | PDOC PROGRESS REPORT ---
Subjective Progress Note for:: 06/05/19 Reason For Visit: CHF, DM, HTN URGENCY, PNUEMONIA Physical Exam Vital Signs: Temp Pulse Resp BP Pulse Ox 98.6 F 92 18 140/83 H 90 L 06/05/19 07:20 06/05/19 08:25 06/05/19 08:25 06/05/19 07:20 06/05/19 08:25 Intake & Output 06/04/19 06/05/19 06/06/19 06:59 06:59 06:59 Intake Total 1230 920 Output Total 800 100 Balance 430 820 Weight 95.8 kg 94.9 kg General appearance: PRESENT: no acute distress, well-developed, well-nourished, other - Sitting up in the chair eating breakfast no respiratory distress Respiratory exam: PRESENT: clear to auscultation charbel. ABSENT: rales, rhonchi, wheezes Cardiovascular exam: PRESENT: RRR. ABSENT: diastolic murmur, rubs, systolic murmur Neurological exam: PRESENT: alert, awake, oriented to person, oriented to place, oriented to time, oriented to situation, CN II-XII grossly intact. ABSENT: motor sensory deficit Psychiatric exam: PRESENT: appropriate affect, normal mood, other - Pleasant in no distress. ABSENT: homicidal ideation, suicidal ideation Results Laboratory Results: 06/03/19 05:30 06/03/19 05:30 06/02/19 10:00 Sputum Gram Stain - Final 06/02/19 10:00 Sputum Sputum Culture - Final C.albicans/C.dubliniensis Normal Pratibha 06/02/19 06/02/19 00:30 00:30 Creatine Kinase 116 CK-MB (CK-2) 1.50 Troponin I < 0.012 NT-Pro-B Natriuret Pep 3000 H Impressions: Chest/Abdomen CTA 06/02/19 01:58 IMPRESSION: Bilateral upper lobe pneumonia with pleural effusions. Cardiomegaly with no aortic dissection or aneurysm. No pulmonary embolus. Chest X-Ray 06/04/19 00:00 IMPRESSION: Improving pneumonia. Assessment and Plan - Diagnosis (1) Acute respiratory failure with hypoxia Is this a current diagnosis for this admission?: Yes (2) Congestive heart failure Qualifiers: Heart failure type: unspecified Heart failure chronicity: acute Qualified Code(s): I50.9 - Heart failure, unspecified Is this a current diagnosis for this admission?: Yes (3) Hypertensive urgency Is this a current diagnosis for this admission?: Yes (4) Pneumonia Qualifiers: Pneumonia type: due to unspecified organism Laterality: bilateral Is this a current diagnosis for this admission?: Yes - Plan Summary Summary: 06/02/2019 Discussed with patient that usually this would take 3 to 5 days of IV antibiotics Patient is feeling better this morning since admission, vital signs are actually better blood pressure when he came in was 195/119 is now 122/59. WBCs when he came in was 14.8 BNP was 3000 CTA of the chest showed pneumonia bilaterally in both upper lobes Will reconcile home medications 06/03/2019 She is actually comfortable when he is in bed and able to talk in full sentences. Afebrile temperature 98.6 pulse in the 80s or 90s. Blood pressure stable actually quite well controlled now WBCount is come down on admission 14.8 today is 8.3. His lytes are stable Continue pulmonary toiletry continue IV antibiotics. To 3 more days and then possibly discharge on p.o. antibiotics 06/04/2019 Patient looks medically stable we will get another chest x-ray today Day 3 of IV Rocephin and Zithromax Potentially discharged home in 48 hours, continue antibiotics p.o. We will ask discharge planning to set up home oxygen 06/05/2019 Vital signs are stable afebrile good blood pressure O2 sats about 91 to 92% on 2 L nasal cannula Chest x-ray from yesterday is significantly improved, white blood cell count is normal 8.3 blood cultures are negative Patient appears to have a contamination of the sputum Day 4 of IV Rocephin and Zithromax Possibly discharge either tomorrow or Saturday p.o. antibiotics Patient does not qualify for home oxygen since this is an acute illness - Time Time Spent with patient: 25-34 minutes
[2019-06-05] MEDS: CEFTRIAXONE 1 GM/D5W RTU 1 GM/50 ML RTUPB IV SCH (11:06)
[2019-06-05] MEDS: COLESEVELAM HCL 625 MG TABLET PO SCH ×2 (11:07→17:26)
[2019-06-05] MEDS: ASPIRIN 325 MG TABLET PO SCH (11:07)
[2019-06-05] MEDS: METOPROLOL TARTRATE 25 MG TABLET PO SCH ×2 (11:07→22:27)
[2019-06-05] MEDS: AZITHROMYCIN 250 MG TABLET PO SCH (11:07)
[2019-06-05] MEDS: ALPRAZOLAM 0.5 MG TABLET PO PRN (22:27)
[2019-06-05] MEDS: ATORVASTATIN CALCIUM 40 MG TABLET PO SCH (22:27)
[2019-06-05] MEDS: MIRTAZAPINE 15 MG TABLET PO SCH (22:27)
[2019-06-06] MEDS: BUPROPION HCL 100 MG TABLET PO SCH ×3 (05:50→21:08)
[2019-06-06] MEDS: HEPARIN SOD (PORCINE) 5,000 UNIT/ML 1 ML VIAL SUBCUT SCH ×3 (05:51→22:40)
[2019-06-06] MEDS: FLUTICASONE NASAL SPRAY 50 MCG/SPRY 120 SPRAY/16 GM NASL SCH ×2 (05:51→17:26)
[2019-06-06] MEDS: INSULIN LISPRO 100 UNIT/ML 3 ML VIAL SUBCUT SCH ×4 (08:21→22:40)
[2019-06-06] MEDS: NICOTINE 7 MG/24 HR PATCH.TD24 TD SCH (08:22)
[2019-06-06] MEDS: METFORMIN HCL 500 MG TABLET PO SCH (08:22)
[2019-06-06] MEDS: IPRATROPIUM/ALBUTEROL 0.5-2.5 MG/3 ML AMPUL NEB SCH ×2 (08:28→15:50)
[2019-06-06] MEDS: COLESEVELAM HCL 625 MG TABLET PO SCH ×2 (09:56→17:27)
[2019-06-06] MEDS: CEFTRIAXONE 1 GM/D5W RTU 1 GM/50 ML RTUPB IV SCH (09:56)
[2019-06-06] MEDS: METOPROLOL TARTRATE 25 MG TABLET PO SCH ×2 (09:56→21:08)
[2019-06-06] MEDS: AZITHROMYCIN 250 MG TABLET PO SCH (09:56)
[2019-06-06] MEDS: ASPIRIN 325 MG TABLET PO SCH (09:56)
--- NOTE | 2019-06-06 10:22 | PDOC PROGRESS REPORT ---
Subjective Progress Note for:: 06/06/19 Reason For Visit: CHF, DM, HTN URGENCY, PNUEMONIA Physical Exam Vital Signs: Temp Pulse Resp BP Pulse Ox 97.9 F 81 16 142/74 H 91 L 06/06/19 07:50 06/06/19 08:28 06/06/19 08:28 06/06/19 07:50 06/06/19 08:28 Intake & Output 06/05/19 06/06/19 06/07/19 06:59 06:59 05:59 Intake Total 920 550 Output Total 100 2 Balance 820 548 Weight 94.9 kg 95.5 kg General appearance: PRESENT: no acute distress, other - As long as patient has his oxygen on, he has no respiratory distress In checking patient on room air he desats below 88% with no exertion Respiratory exam: PRESENT: clear to auscultation charbel, other - I can detect no rales or rhonchi. ABSENT: rales, rhonchi, wheezes Cardiovascular exam: PRESENT: RRR. ABSENT: diastolic murmur, rubs, systolic murmur Neurological exam: PRESENT: alert, awake, oriented to person, oriented to place, oriented to time, oriented to situation, CN II-XII grossly intact. ABSENT: motor sensory deficit Psychiatric exam: PRESENT: appropriate affect, normal mood, other - Patient voices no concerns agreeable to any treatments. ABSENT: homicidal ideation, suicidal ideation Results Laboratory Results: 06/03/19 05:30 06/03/19 05:30 06/02/19 06/02/19 00:30 00:30 Creatine Kinase 116 CK-MB (CK-2) 1.50 Troponin I < 0.012 NT-Pro-B Natriuret Pep 3000 H Impressions: Chest/Abdomen CTA 06/02/19 01:58 IMPRESSION: Bilateral upper lobe pneumonia with pleural effusions. Cardiomegaly with no aortic dissection or aneurysm. No pulmonary embolus. Chest X-Ray 06/04/19 00:00 IMPRESSION: Improving pneumonia. Assessment and Plan - Diagnosis (1) Acute respiratory failure with hypoxia Is this a current diagnosis for this admission?: Yes (2) Congestive heart failure Qualifiers: Heart failure type: unspecified Heart failure chronicity: acute Qualified Code(s): I50.9 - Heart failure, unspecified Is this a current diagnosis for this admission?: Yes (3) Hypertensive urgency Is this a current diagnosis for this admission?: Yes (4) Pneumonia Qualifiers: Pneumonia type: due to unspecified organism Laterality: bilateral Is this a current diagnosis for this admission?: Yes - Plan Summary Summary: 06/02/2019 Discussed with patient that usually this would take 3 to 5 days of IV antibiotics Patient is feeling better this morning since admission, vital signs are actually better blood pressure when he came in was 195/119 is now 122/59. WBCs when he came in was 14.8 BNP was 3000 CTA of the chest showed pneumonia bilaterally in both upper lobes Will reconcile home medications 06/03/2019 She is actually comfortable when he is in bed and able to talk in full sentences. Afebrile temperature 98.6 pulse in the 80s or 90s. Blood pressure stable actually quite well controlled now WBCount is come down on admission 14.8 today is 8.3. His lytes are stable Continue pulmonary toiletry continue IV antibiotics. To 3 more days and then possibly discharge on p.o. antibiotics 06/04/2019 Patient looks medically stable we will get another chest x-ray today Day 3 of IV Rocephin and Zithromax Potentially discharged home in 48 hours, continue antibiotics p.o. We will ask discharge planning to set up home oxygen 06/05/2019 Vital signs are stable afebrile good blood pressure O2 sats about 91 to 92% on 2 L nasal cannula Chest x-ray from yesterday is significantly improved, white blood cell count is normal 8.3 blood cultures are negative Patient appears to have a contamination of the sputum Day 4 of IV Rocephin and Zithromax Possibly discharge either tomorrow or Saturday p.o. antibiotics Patient does not qualify for home oxygen since this is an acute illness 06/06/2019 Patient had his oxygen removed and was checked while sitting in the chair. Saturation dropped to 88%. On 2 L nasal cannula he fluctuates between 89 to 94%. Quite honestly I am a little surprised that he continues to be hypoxic Going to order another CT angiogram of the chest. Patient is on prophylaxis heparin 5000 units subcu every 8 hours Patient continues to be on IV Rocephin and p.o. Zithromax - Time Time Spent with patient: 25-34 minutes
--- NOTE | 2019-06-06 11:58 | RADIOLOGY REPORT (SQ) ---
EXAM DESCRIPTION: CTA CHEST COMPLETED DATE/TIME: 06/06/2019 11:41 am REASON FOR STUDY: persistant hypoxia, < 88% RA COMPARISON: 06/02/2019 TECHNIQUE: CT scan of the chest performed using helical scanning technique with dynamic intravenous contrast injection. Images reviewed with lung, soft tissue and bone windows. Reconstructed coronal and sagittal MPR images reviewed. Additional 3 dimensional post-processing performed to develop Maximal Intensity Projection images (NH P). All images stored on PACS. All CT scanners at this facility use dose modulation, iterative reconstruction, and/or weight based d osing when appropriate to reduce radiation dose to as low as reasonably achievable (ALARA). [facility]: Dose Right [facility]: CareDose [facility]: Dose Right [facility]: Teradose 4D [facility]: [employer] RENAL FUNCTION: GFR > 60. RADIATION DOSE: CT Rad equipment meets quality standard of care and radiation dose reduction techniq ues were employed. CTDIvol: 20.3 - 26.4 mGy. DLP: 778 mGy-cm. . LIMITATIONS: None. FINDINGS: LUNGS AND PLEURA: Motion artifact. While basilar dependent changes and consolidation have improved, ground-glass infiltrates in the upper lobes have progressed. AORTA AND GREAT VESSELS: Limited opacification due to phase of contrast. Mild atherosclerosis withou t aneurysm or dissection. HEART: No pericardial effusion. Cardiomegaly. Prior CABG. PULMONARY ARTERIES: Clear of thrombus allowing for limiting motion. HILAR AND MEDIASTINAL STRUCTURES: No identified masses or abnormal nodes. HARDWARE: None in the chest. UPPER ABDOMEN: Cholelithiasis. THYROID AND OTHER SOFT TISSUES: Enlarged thyroid with mild left lobe nodularity. BONES: No acute or significant finding. 3D MIPS: Confirm above findings. OTHER: No other significant finding. IMPRESSION: 1. No pulmonary embolus allowing for limiting motion. 2. Improved basilar aeration. 3. Progressive ground-glass infiltrates in the upper lobes, however. COMMENT: Quality ID # [id number]: Final reports with documentation of one or more dose reduction techniques (e.g., Automated exposure control, adjustment of the mA and/or kV according to patient size, use of iterative reconstruction technique) TECHNICAL DOCUMENTATION: JOB ID: [id number] [employer]- All Rights Reserved Reading location - IP/workstation name: [email or web address]
[2019-06-06 15:41] LABS: ABSOLUTE EOSINOPHILS # (AUTO) 0.2 10^3/uL (0.0-0.6); ABSOLUTE LYMPHOCYTES (AUTO) 1.1 10^3/uL (0.5-4.7); ABSOLUTE NEUT (AUTO) 5.9 10^3/uL (1.7-8.2); BASOPHILS % (AUTO) 0.5 % (0-2); EOSINOPHILS % (AUTO) 2.8 % (0-6); HEMATOCRIT 42.8 % (37.9-51.0); HEMOGLOBIN 14.7 g/dL (13.5-17.0); LYMPHOCYTES % (AUTO) 12.8 % (13-45); MEAN CORPUSCULAR HEMOGLOBIN 34.3 pg (27.0-33.4); MEAN CORPUSCULAR HGB CONC 34.5 g/dL (32.0-36.0); MEAN CORPUSCULAR VOLUME 99 fl (80-97); MONOCYTES % (AUTO) 12.5 % (3-13); PLATELET COUNT 117 10^3/uL (150-450); SEGMENTED NEUTROPHILS % (AUTO) 71.4 % (42-78); TOTAL CELLS COUNTED % (AUTO) 100 %; WHITE BLOOD COUNT 8.3 10^3/uL (4.0-10.5)
[2019-06-06 15:49] LABS: ANION GAP 14 (5-19); BLOOD UREA NITROGEN 19 mg/dL (7-20); CALCIUM 9.5 mg/dL (8.4-10.2); CARBON DIOXIDE 26 mmol/L (22-30); CHLORIDE 99 mmol/L (98-107); GLUCOSE 114 mg/dL (75-110); POTASSIUM 3.6 mmol/L (3.6-5.0)
[2019-06-06] MEDS ORDERED: CEFTRIAXONE 1 GM/D5W RTU 1 GM/50 ML RTUPB IV ONE (20:00)
[2019-06-06] MEDS: ALPRAZOLAM 0.5 MG TABLET PO PRN (21:08)
[2019-06-06] MEDS: ATORVASTATIN CALCIUM 40 MG TABLET PO SCH (21:08)
[2019-06-06] MEDS: MIRTAZAPINE 15 MG TABLET PO SCH (21:08)
[2019-06-07] MEDS: IPRATROPIUM/ALBUTEROL 0.5-2.5 MG/3 ML AMPUL NEB SCH ×2 (00:19→07:33)
[2019-06-07] MEDS: FLUTICASONE NASAL SPRAY 50 MCG/SPRY 120 SPRAY/16 GM NASL SCH (06:37)
[2019-06-07] MEDS: HEPARIN SOD (PORCINE) 5,000 UNIT/ML 1 ML VIAL SUBCUT SCH (06:37)
[2019-06-07] MEDS: BUPROPION HCL 100 MG TABLET PO SCH (06:37)
[2019-06-07] MEDS: INSULIN LISPRO 100 UNIT/ML 3 ML VIAL SUBCUT SCH (09:09)
[2019-06-07] MEDS: NICOTINE 7 MG/24 HR PATCH.TD24 TD SCH (09:09)
[2019-06-07] MEDS: ASPIRIN 325 MG TABLET PO SCH (09:23)
[2019-06-07] MEDS: AZITHROMYCIN 250 MG TABLET PO SCH (09:23)
[2019-06-07] MEDS: METOPROLOL TARTRATE 25 MG TABLET PO SCH (09:24)
[2019-06-07] MEDS: COLESEVELAM HCL 625 MG TABLET PO SCH (09:24)
[2019-06-07] MEDS ORDERED: CEFTRIAXONE 1 GM/D5W RTU 1 GM/50 ML RTUPB IV SCH (10:00)
[2019-06-07 11:11] VITALS: BP 124/62
--- NOTE | 2019-06-07 14:21 | PDOC DISCHARGE SUMMARY ---
Impression - Admit/DC Date/PCP Admission Date/Primary Care Provider: 06/02/19 03:59 JAZMIN SCOTT MD Discharge Date: 06/07/19 - Discharge Diagnosis (1) Acute respiratory failure with hypoxia Is this a current diagnosis for this admission?: Yes (2) Congestive heart failure Is this a current diagnosis for this admission?: Yes (3) Hypertensive urgency Is this a current diagnosis for this admission?: Yes (4) Pneumonia Is this a current diagnosis for this admission?: Yes (5) Anemia Is this a current diagnosis for this admission?: Yes (6) Atrial fibrillation with RVR Is this a current diagnosis for this admission?: Yes - Assessment Summary: 06/02/2019 Discussed with patient that usually this would take 3 to 5 days of IV antibiotics Patient is feeling better this morning since admission, vital signs are actually better blood pressure when he came in was 195/119 is now 122/59. WBCs when he came in was 14.8 BNP was 3000 CTA of the chest showed pneumonia bilaterally in both upper lobes Will reconcile home medications 06/03/2019 She is actually comfortable when he is in bed and able to talk in full sentences. Afebrile temperature 98.6 pulse in the 80s or 90s. Blood pressure stable actually quite well controlled now WBCount is come down on admission 14.8 today is 8.3. His lytes are stable Continue pulmonary toiletry continue IV antibiotics. To 3 more days and then possibly discharge on p.o. antibiotics 06/04/2019 Patient looks medically stable we will get another chest x-ray today Day 3 of IV Rocephin and Zithromax Potentially discharged home in 48 hours, continue antibiotics p.o. We will ask discharge planning to set up home oxygen 06/05/2019 Vital signs are stable afebrile good blood pressure O2 sats about 91 to 92% on 2 L nasal cannula Chest x-ray from yesterday is significantly improved, white blood cell count is normal 8.3 blood cultures are negative Patient appears to have a contamination of the sputum Day 4 of IV Rocephin and Zithromax Possibly discharge either tomorrow or Saturday p.o. antibiotics Patient does not qualify for home oxygen since this is an acute illness 06/06/2019 Patient had his oxygen removed and was checked while sitting in the chair. Saturation dropped to 88%. On 2 L nasal cannula he fluctuates between 89 to 94%. Quite honestly I am a little surprised that he continues to be hypoxic Going to order another CT angiogram of the chest. Patient is on prophylaxis heparin 5000 units subcu every 8 hours Patient continues to be on IV Rocephin and p.o. Zithromax 06/07/2019 She was off of his oxygen all night long on room air and is sats were between 93 and 96%. Patient would like to be discharged home today in fact he said he is been ready for several days.. Patient's CT scan of the chest yesterday showed improving of his pneumonia and/or consolidation with an increased in the upper lobes of a groundglass like appearance. Would attribute this to pneumonitis. She was discharged home on completion of his antibiotics which would be Zithromax 500 mg 3 tablets, tomorrow then Saturday and Saturday. She also sent home on a wall inhaler as needed told to decrease his aspirin to 81 mg enteric- coated daily and iron gluconate 240 mg twice daily. Patient is to call Dr. 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 Fortunately he is not going to be available in the hospital for consults for the next 8 days or I would consult him while the patient is still here. He is going to follow-up with his primary care provider concerning his anemia. 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 It seems satisfied with his care while he was here. Patient is medically stable for discharge - Additional Information Resuscitation Status: Full Code Discharge Diet: Cardiac, Diabetic Discharge Activity: Activity As Tolerated, Balance Activity w/Rest, Weigh Daily Referrals: MARGARITO LEMUS MD [ACTIVE STAFF] - (sticker in book) AJZMIN SCOTT MD [Primary Care Provider] - 06/11/19 1:20 pm Prescriptions: Ferrous Gluconate 240 mg PO BID #60 tablet Nicotine [Nicoderm 7 mg/24 Hr Transdermal Patch] 1 each TD QAM #30 patch.td24 Albuterol Sulfate [Proair HFA Inhalation Aerosol 8.5 gm MDI] 1 puff IH Q4 PRN #1 mdi PRN Reason: Azithromycin [Zithromax 250 mg Tablet] 500 mg PO DAILY #3 tablet Home Medications: Atorvastatin Calcium 40 mg PO QHS 10/06/16 Alprazolam 1 mg PO DAILYP PRN 06/02/19 Bupropion HCl [Bupropion Xl] 150 mg PO Q12 06/02/19 Colesevelam HCl [Welchol 625 mg Tablet] 625 mg PO BID 06/02/19 Metformin HCl [Metformin HCl ER] 500 mg PO DAILY 06/02/19 Metoprolol Tartrate [Lopressor 25 mg Tablet] 25 mg PO Q12 06/02/19 Mirtazapine 30 mg PO QHS 06/02/19 Nitroglycerin [Nitrostat 0.4 mg (1/150 Gr) Tabs 25/Bottle] 1 tab SL Q5MP PRN 06/02/19 Triamcinolone Acetonide 60 ml TP BID 06/02/19 Acetaminophen [Tylenol 325 mg Tablet] 650 mg PO Q4HP PRN tablet 06/07/19 Albuterol Sulfate [Proair HFA Inhalation Aerosol 8.5 gm MDI] 1 puff IH Q4 PRN #1 mdi 06/07/19 Atorvastatin Calcium [Lipitor 40 mg Tablet] 40 mg PO QHS #0 tablet 06/07/19 Azithromycin [Zithromax 250 mg Tablet] 500 mg PO DAILY #3 tablet 06/07/19 Ferrous Gluconate 240 mg PO BID #60 tablet 06/07/19 Nicotine [Nicoderm 7 mg/24 Hr Transdermal Patch] 1 each TD QAM #30 patch.td24 06/07/19 History of Present Illiness History of Present Illness: ADRIANA GALLEGO is a 68 year old male Physical Exam Vital Signs: Temp Pulse Resp BP Pulse Ox 97.9 F 76 16 124/62 94 06/07/19 11:10 06/07/19 11:10 06/07/19 11:10 06/07/19 11:10 06/07/19 11:10 Intake & Output 06/06/19 06/07/19 06/08/19 07:59 06:59 06:59 Intake Total Output Total Balance Weight Results Laboratory Results: WBC 8.3 10^3/uL (4.0-10.5) 06/06/19 15:10 RBC 4.30 10^6/uL (4.35-5.55) L 06/06/19 15:10 Hgb 14.7 g/dL (13.5-17.0) 06/06/19 15:10 Hct 42.8 % (37.9-51.0) 06/06/19 15:10 MCV 99 fl (80-97) H 06/06/19 15:10 MCH 34.3 pg (27.0-33.4) H 06/06/19 15:10 MCHC 34.5 g/dL (32.0-36.0) 06/06/19 15:10 RDW 13.0 % (11.5-14.0) 06/06/19 15:10 Plt Count 117 10^3/uL (150-450) L 06/06/19 15:10 Lymph % (Auto) 12.8 % (13-45) L 06/06/19 15:10 [place] % (Auto) 12.5 % (3-13) 06/06/19 15:10 Eos % (Auto) 2.8 % (0-6) 06/06/19 15:10 Baso % (Auto) 0.5 % (0-2) 06/06/19 15:10 Reticulocyte # 0.063 10^6/uL (0.028-0.122) 06/02/19 00:30 Absolute Neuts (auto) 5.9 10^3/uL (1.7-8.2) 06/06/19 15:10 Absolute Lymphs (auto) 1.1 10^3/uL (0.5-4.7) 06/06/19 15:10 Absolute Monos (auto) 1.0 10^3/uL (0.1-1.4) 06/06/19 15:10 Absolute Eos (auto) 0.2 10^3/uL (0.0-0.6) 06/06/19 15:10 Absolute Basos (auto) 0.0 10^3/uL (0.0-0.2) 06/06/19 15:10 Seg Neutrophils % 71.4 % (42-78) 06/06/19 15:10 Retic Count (auto) 1.34 % (0.66-2.85) 06/02/19 00:30 PT 13.4 SEC (11.4-15.4) 06/02/19 00:30 INR 1.02 06/02/19 00:30 APTT 28.7 SEC (23.5-35.8) 06/02/19 00:30 Sodium 139.0 mmol/L (137-145) 06/06/19 15:10 Potassium 3.6 mmol/L (3.6-5.0) 06/06/19 15:10 Chloride 99 mmol/L (98-107) 06/06/19 15:10 Carbon Dioxide 26 mmol/L (22-30) 06/06/19 15:10 Anion Gap 14 (5-19) 06/06/19 15:10 BUN 19 mg/dL (7-20) 06/06/19 15:10 Creatinine 0.84 mg/dL (0.52-1.25) 06/06/19 15:10 Est GFR ( Amer) > 60 (>60) 06/06/19 15:10 Est GFR (MDRD) Non-Af > 60 (>60) 06/06/19 15:10 Glucose 114 mg/dL (75-110) H 06/06/19 15:10 POC Glucose 110 mg/dL (70-110) 06/07/19 07:55 Calcium 9.5 mg/dL (8.4-10.2) 06/06/19 15:10 Iron 93.4 ug/dL (49-181) 06/02/19 00:30 TIBC 382 ug/dL (250-450) 06/02/19 00:30 % Saturation 24 % 06/02/19 00:30 Ferritin 297.00 ng/mL (17.9-464.0) 06/02/19 00:30 Total Bilirubin 1.2 mg/dL (0.2-1.3) 06/02/19 00:30 Direct Bilirubin 0.4 mg/dL (0.0-0.4) 06/02/19 00:30 Neonat Total Bilirubin Not Reportable 06/02/19 00:30 Neonat Direct Bilirubin Not Reportable 06/02/19 00:30 Neonat Indirect Bili Not Reportable 06/02/19 00:30 AST 20 U/L (17-59) 06/02/19 00:30 ALT 46 U/L (<50) 06/02/19 00:30 Alkaline Phosphatase 76 U/L (38-126) 06/02/19 00:30 Creatine Kinase 116 U/L (55-170) 06/02/19 00:30 CK-MB (CK-2) 1.50 ng/mL (<4.55) 06/02/19 00:30 Troponin I < 0.012 ng/mL 06/02/19 00:30 NT-Pro-B Natriuret Pep 1230 pg/mL (<125) H 06/06/19 15:10 Total Protein 8.3 g/dL (6.3-8.2) H 06/02/19 00:30 Albumin 4.6 g/dL (3.5-5.0) 06/02/19 00:30 Vitamin B12 341.0 pg/mL (239-931) 06/02/19 00:30 Folate 10.20 ng/mL (>2.76) 06/02/19 00:30 Urine Color YELLOW 06/02/19 01:30 Urine Appearance CLEAR 06/02/19 01:30 Urine pH 6.0 (5.0-9.0) 06/02/19 01:30 Ur Specific [place] 1.027 06/02/19 01:30 Urine Protein >=500 mg/dL (NEGATIVE) H 06/02/19 01:30 Urine Glucose (UA) NEGATIVE mg/dL (NEGATIVE) 06/02/19 01:30 Urine Ketones NEGATIVE mg/dL (NEGATIVE) 06/02/19 01:30 Urine Blood NEGATIVE (NEGATIVE) 06/02/19 01:30 Urine Nitrite NEGATIVE (NEGATIVE) 06/02/19 01:30 Urine Bilirubin NEGATIVE (NEGATIVE) 06/02/19 01:30 Urine Urobilinogen NEGATIVE mg/dL (<2.0) 06/02/19 01:30 Ur Leukocyte Esterase TRACE (NEGATIVE) H 06/02/19 01:30 Urine WBC (Auto) 10 /HPF 06/02/19 01:30 Urine RBC (Auto) 3 /HPF 06/02/19 01:30 U Hyaline Cast (Auto) 9 /LPF 06/02/19 01:30 Squamous Epi Cells Auto <1 /HPF 06/02/19 01:30 Urine Mucus (Auto) MOD /LPF 06/02/19 01:30 Urine Ascorbic Acid 40 (NEGATIVE) H 06/02/19 01:30 06/02/19 06/06/19 00:30 15:10 CK-MB (CK-2) 1.50 Troponin I < 0.012 NT-Pro-B Natriuret Pep 3000 H 1230 H Impressions: Chest X-Ray 06/02/19 00:00 IMPRESSION: Left upper lobe pneumonia. Chest/Abdomen CTA 06/02/19 01:58 IMPRESSION: Bilateral upper lobe pneumonia with pleural effusions. Cardiomegaly with no aortic dissection or aneurysm. No pulmonary embolus. Chest X-Ray 06/04/19 00:00 IMPRESSION: Improving pneumonia. Chest/Abdomen CTA 06/06/19 00:00 IMPRESSION: 1. No pulmonary embolus allowing for limiting motion. 2. Improved basilar aeration. 3. Progressive ground-glass infiltrates in the upper lobes, however. Stroke Is this a Stroke Patient?: No Acute Heart Failure - Is this a Heart Failure Patient?: Yes Documentation of LVEF assessment?: No, Document reason - Patient has had this done in the past LVEF < 40%?: No- if no continue to question #3 3. Anticoagulant therapy for permanect/persistent/paraoxysmal Afib or Aflutter: Yes Follow-up Appointment scheduled within 7 days?: Yes
== END 2019-06-07 11:22 | disposition home or self-care (01) | DRG 193 ==
LOC: ER 00:26 → EH 03:59 → 3S 06:02
PROVIDERS: ADMIT Internal Medicine; ATTEND Internal Medicine
PROC: 5A09457 Assistance with Respiratory Ventilation, 24-96 Consecutive Hours, Continuous Positive Airway Pressure (ICD-10-PCS; principal; 2019-06-02)
DX: J18.1 Lobar pneumonia, unspecified organism (principal); J96.01 Acute respiratory failure with hypoxia; I11.0 Hypertensive heart disease with heart failure; I48.91 Unspecified atrial fibrillation; I50.9 Heart failure, unspecified; I16.0 Hypertensive urgency; D64.9 Anemia, unspecified; I25.10 Atherosclerotic heart disease of native coronary artery without angina pectoris; F41.9 Anxiety disorder, unspecified; E78.5 Hyperlipidemia, unspecified; F17.200 Nicotine dependence, unspecified, uncomplicated; Z95.1 Presence of aortocoronary bypass graft; I25.2 Old myocardial infarction
CPT/HCPCS: 36415; 71045; 71046; 71275; 80048; 80053; 81001; 82550; 82553; 82607; 82728; 82746; 82962; 83540; 83550; 83880; 84484; 85025; 85045; 85610; 85730; 87040; 87070; 87205; 93005; 93010; 94660; 94667; 94668; 94799; 96365; 99291; J0456; J0696; J1815; J1956; J3490; J7060; J7620

== ENCOUNTER 2020-01-12 09:16 | Day surgery (SDC) | payer MEDICARE, OTHER ==
[~2020-01-12 09:16] MED LIST: BUPIVACAINE HCL 0.75% INJ/PF (7.5 MG/1 ML) 10 ML SDV OD PRN; CHONDR SU A NA/HYALUR INTRAOC KIT (SURGICARE) ONE; DORZOLAMIDE HCL 2%/TIMOLOL MALEAT 0.5% OPH SOLN 10 ML OD PRN; EPINEPHRINE INJ/PF 1 MG/1 ML AMPULE ONE; FENTANYL CITRATE INJ/PF 100 MCG/2 ML AMPUL ONE; KETOROLAC TROMETHAMINE 0.45% 4 DROP/0.4 ML DROPERETTE OD PRN; LIDOCAINE 1%/PHENYLEPHRINE 1.5% 1 ML VIAL ONE; LIDOCAINE 4% INJ/PF (40 MG/ML) 5 ML AMPUL OD PRN; MIDAZOLAM 2 MG/2 ML INJ ONE; ONDANSETRON HCL INJ/PF 4 MG/2 ML SDV ONE; TRYPAN BLUE 0.06 % OPH SOLN 0.5 ML DISP.SYRIN ONE
[2020-01-12] MEDS: TETRACAINE HCL 0.5% OPH SOLN 4 ML OD PRN ×3 (09:36→10:08)
[2020-01-12] MEDS: TROPICAMIDE 1% OPH SOLN 15 ML OD PRN ×3 (09:36→09:56)
[2020-01-12] MEDS: CYCLOPENTOLATE 0.2%/PHENYLEPHRINE 1% OPH SOLN 2 ML OD PRN ×3 (09:37→09:56)
[2020-01-12] MEDS: BESIFLOXACIN HCL 0.6% OPH SUSP 5 ML BOTTLE OD PRN ×3 (09:37→10:38)
--- NOTE | 2020-01-12 11:48 | Operative Report ---
Operative Report-[facility] Operative Report: DATE OF SURGERY: 01/12/2020 PREOPERATIVE DIAGNOSIS: CATARACT, RIGHT EYE. POSTOPERATIVE DIAGNOSIS: CATARACT, RIGHT EYE. PROCEDURE PERFORMED: PHACOEMULSIFICATION WITH POSTERIOR CHAMBER INTRAOCULAR LENS, RIGHT EYE. Intraocular Lens Model : ZCBOO 19.0 Total Phaco Time: 12.83 CDE SURGEON: DANNY MOYER MD ANESTHESIA: TOPICAL WITH MAC. INDICATIONS FOR SURGERY: Unable to see faces or read road signs. PROCEDURE: The patient was brought to the Operating Room and placed on the operative table. Following tetracaine drops, topical anesthesia was administered. This consisted of instrument wipe pledgets soaked in a solution of 4% Xylocaine mixed with 0.75% Marcaine in a 1:2 ratio. A 2 x 1 cm pledget was placed in the superior fornix. A 1 x 1 cm pledget was placed in the inferior fornix. The eye was patched shut for 5 minutes. The patch was removed. The eye was sterilely prepped and draped in the usual manner. Lid speculum was placed in the eye. The pledgets were removed. 4-0 black silk sutures were placed around the superior and the inferior rectus muscles to be used as traction. A conjunctival peritomy was made at the 10 o'clock position. Hemostasis was obtained with bipolar cautery. A posterior limbal groove was created using a crescent knife and dissected anteriorly towards the cornea. A sharp point blade was used to create a paracentesis site at the 2 o'clock position. 0.2 cc non preserved Lidocaine was injected into the anterior chamber. A 2.4 mm keratome was used to enter the anterior chamber through the groove. Viscoelastic was injected into the anterior chamber. An anterior capsulotomy was performed using Utrata forceps in a capsulorrhexis fashion. Hydrodissection and hydrodelineation were performed. Phacoemulsification was performed in [id number] technique. Following this, the I/A unit was used to remove residual cortex. Viscoelastic was injected into the capsular bag. The Intraocular lens was placed in the capsular bag. The I/A unit was used to remove residual viscoelastic. The wound was seen to be watertight under high and low pressure, and no sutures were pl aced. The intraocular lens was well centered. The pressure was adjusted in the eye to normal pressure. The 4-0 black silk sutures and lid speculum were removed. The eye was shielded after Besivance. prednisolone, and Cosopt drops were placed. The patient tolerated the procedure well and was sent to the Recovery Room in good condition.
== END 2020-01-12 11:12 | disposition home or self-care (01) ==
LOC: SC 09:16
PROVIDERS: ATTEND Ophthalmology
DX: H25.89 Other age-related cataract (principal); H25.812 Combined forms of age-related cataract, left eye; H20.021 Recurrent acute iridocyclitis, right eye; H04.123 Dry eye syndrome of bilateral lacrimal glands; Z79.899 Other long term (current) drug therapy; Z79.82 Long term (current) use of aspirin; Z79.84 Long term (current) use of oral hypoglycemic drugs; I25.2 Old myocardial infarction; E11.9 Type 2 diabetes mellitus without complications; E66.9 Obesity, unspecified; I20.9 Angina pectoris, unspecified; I10 Essential (primary) hypertension
CPT/HCPCS: 66984; 82962; 00142; V2632; J2250; J3490 ×4; A9270; J0171; J3010; J2405; 142